=== PATIENT | male | born 1975 | race Caucasian/White ===

== ENCOUNTER 2024-05-15 19:08 | Inpatient (IN) | payer OTHER, SELFPAY ==
[2024-05-15] VITALS (20 sets, daily range): BP systolic 137–218; BP diastolic 92–127; BMI 22.4
[2024-05-15 17:07] LABS: % Eosinophils 0.5 % (0-6); % Immature Granulocytes 0.5 % (0-0.5); % Lymphocytes 20.8 % (20.5-51.1); % Monocytes 6.1 % (1.7-9.3); % Neutrophils 71.1 % (42.2-75.2); Absolute Basophils 0.1 10^3/uL (0-0.2); Absolute Lymphocytes 1.7 10^3/uL (1.2-3.4); Absolute Monocytes 0.5 10^3/uL (0.1-0.6); Absolute Neutrophils 5.7 10^3/uL (1.4-6.5); Hematocrit 46.5 % (39.0-52.0); Hemoglobin 16.2 g/dL (13.0-18.0); Mean Corp Hgb Conc. 34.8 g/dL (33.0-37.0); Mean Corpuscular Hgb 29.3 pg (27.0-31.0); Mean Corpuscular Volume 84.1 fL (80.0-94.0); Mean Platelet Volume 11.1 fL (7.4-10.4); Nucleated Red Blood Cells % 0 % (-); Platelet Count 204 10^3/uL (130-400); Red Blood Cell Count 5.53 10^6/uL (4.70-6.10)
[2024-05-15 17:21] LABS: ALT (SGPT) 40 U/L (0-50); AST (SGOT) 31 U/L (17-59); Albumin 4.1 g/dl (3.5-5.0); Alkaline Phosphatase 332 U/L (38-126); Blood Urea Nitrogen 16 mg/dl (9-20); Calcium 9.4 mg/dl (8.4-10.2); Carbon Dioxide 26 mmol/L (22-30); Chloride 81 mmol/L (98-107); Potassium 4.8 mmol/L (3.5-5.1); Sodium 117 mmol/L (135-145); Total Bilirubin 0.7 mg/dl (0.2-1.3); eGFR > 60.00
[2024-05-15 17:29] LABS: Urine Albumin Negative (Neg - Trace); Urine Bilirubin Negative (Negative); Urine Character Clear (Clear); Urine Color Straw; Urine Glucose 3+ (Negative); Urine Ketone Negative (Negative); Urine Leukocyte Negative (Negative); Urine Nitrite Negative (Negative); Urine Occult Blood Negative (Negative); Urine Urobilinogen Negative (Neg - 1+)
[2024-05-15 17:32] LABS: Glucose 1074 mg/dl (70-99)
[2024-05-15 17:34] LABS: Glucose - Point of Care > 600 mg/dl (70-99)
--- NOTE | 2024-05-15 17:43 | ED.GENMED ---
History of Present Illness
General
Chief Complaint: Change in Mental Status
Time Seen by Provider: 05/15/24 17:30
History of Present Illness
History of Present Illness:
48-year-old male presents the emergency department his for evaluation of numerous symptoms for the past 2 weeks. He has been apparently fatigued and occasionally confused. Has had difficulty walking and is noted to be thirsty with increased
urination. Has lost significant amount of weight over the past 2 months. Apparently had a fall earlier this week while trying to use the bathroom. Currently he denies any headache, chest pain, shortness of breath or abdominal pain. Did vomit
once yesterday but none today.
Past History
Past History
ED Past Medical History: Other (lumbar rad)
Social History
Tobacco: Smoker
Personal: Single
Living: with family
Employment: Not employed
Review of Systems
Review of Systems
Allergies reviewed?: Yes
All Other Systems: ROS reviewed and negative except as documented in HPI and ROS
Phy Exam
Physical Exam
Physical Exam:
GEN: Well appearing, NAD, WDWN
Eyes: PERRLA, EOMs intact, no scleral icterus
HENT: NCAT, oral mucosa dry
Lungs: CTAB, no wheezes, rales, rhonchi, normal chest wall excursion
Cardiac: RRR, no M/R/G, no peripheral edema. Radial pulses 2+ bilat
Abdomen: S, NT, ND, NABS, no masses or hepatosplenomegaly
Neuro: AO x 3
MSK: No gross deformity or ecchymosis. No edema. No digital clubbing
Skin: No rashes, petechiae. Normal color, no pallor or jaundice.
Psych: Calm, cooperative, proper hygiene
Course
Orders/Labs/Results
Orders:
Orders
05/15/24 16:54
Complete Blood Count/With Diff Urgent
Comprehensive Metabolic Panel Urgent
05/15/24 17:17
Osmolality, Random Urine Urgent
Date Specimen was Collected: 05/15/24
Time Specimen was Collected: 16:49
Comment: ADD ON
Urinalysis Reflex To Culture Urgent
Date Specimen was Collected: 05/15/24
Time Specimen was Collected: 16:49
Urine Sodium Urgent
Date Specimen was Collected: 05/15/24
Time Specimen was Collected: 16:49
Comment: ADD ON
05/15/24 17:32
Acetone [B-Hydroxybutyrate] Urgent
Venous Blood Gas Urgent
%Oxygen/Room Air: 98
05/15/24 17:33
Add On- LAB Urgent
Tests Added?: serum osmolality, urine sodium
05/15/24 17:41
Lactated Ringers [Lr] 2,000 ml IV BOLUS
05/15/24 17:45
Reg Insulin 100 Units/100 ml [Novolin R Insulin Infusion] 100 units in 100 ml IV ORDERED RATE
05/15/24 17:55
Glucose Stat
Abnormal Lab Results
05/15/24 05/15/24 05/15/24
16:54 17:17 17:33
MPV 11.1 H fL
(7.4-10.4)
Sodium 117 L* mmol/L
(135-145)
Chloride 81 L mmol/L
(98-107)
Glucose 1074 H* mg/dl
(70-99)
Alkaline Phosphatase 332 H U/L
(38-126)
Urine Sodium 7 L mmol/L
(30-90)
Urine Glucose 3+ A
(Negative)
POC Glucose > 600 H* mg/dl
(70-99)
05/15/24 16:54
Vital Signs
Initial and Last Documented VS:
Initial Vital Signs
Temp Pulse Resp BP Pulse Ox
98.4 F 106 18 137/95 98
05/15/24 16:42 05/15/24 16:42 05/15/24 16:42 05/15/24 16:42 05/15/24 16:42
Last Documented Vital Signs
Temp Pulse Resp BP Pulse Ox
98.4 F 97 13 137/95 98
05/15/24 16:42 05/15/24 17:45 05/15/24 17:45 05/15/24 16:42 05/15/24 16:42
MDM/Problems Addressed
MDM/Problems Addressed:
Patient arrives with altered mental status and weight loss likely on the basis of new onset diabetes with hyperosmolar nonketotic state. No anion gap however marked hyperglycemia. Hyponatremia is compensatory and corrects to 133 when glucose
factored in. He is clinically stable however will require intensive care unit admission due to severe HHS. IV fluid resuscitation and insulin drip initiated in the emergency department. Will be admitted to the hospitalist service
*Critical Care Note
Total Time (30-74mins, 75-104mins- exclusive of procedures): 35 minutes
comment:
Critical care time: 35 minutes
Critical care time was exclusive of: Separately billable procedures, treating other patients, and teaching time
Critical care was necessary to treat or prevent imminent or life-threatening deterioration of the following conditions: HHS
Critical care time spent personally by me on the following activities:
[x] Review of old charts
[x] Obtaining history from patient or surrogate
[x] Ordering and review of the laboratory studies
[x] Ordering and review of radiographic studies
[x] Ordering and performing treatments and interventions
[x] Patient patient's response to treatment
[x] Development of treatment plan with patient or surrogate
ED Attending Note
-
Portions of this chart may have been created with voice recognition software.� Occasional wrong word or��sound alike� substitutions may have occurred due to the inherent limitations of voice recognition software.
Discharge Plan
Departure
Patient Disposition: Admit
Date of Disposition: 05/15/24
Time of Disposition: 18:10
Admit to: ICU
Presentation/result/management discussed w/ accepting MD/DO: Hospitalist
Discharge Problem:
Hyperosmolar hyperglycemic state (HHS)
Prescriptions:
No Action
prednisone 10 MG tablet
10 mg PO .TAPER Qty: 45 0RF
Rx Instructions:
Take [id number], [id number], 64fzj9sldt, 33gwv0vyto, 12wpc8myeg
tramadol 50 MG tablet
50 mg PO Q6HPRN PRN (Reason: pain) Qty: 20 0RF
Interventions
Interventions:
*Risk Screen - Suicide Last Done: 05/15/24 16:42
*General Assessment Last Done: 05/15/24 17:41
*Neglect/Abuse Screening Last Done: 05/15/24 16:42
ED- Fall Risk Assessment Last Done: 05/15/24 17:48
*ED COVID-19 Vaccine History Last Done: 05/15/24 17:46
ED- Neurological Assessment Last Done: 05/15/24 17:47
ED- Cardiac Assessment Last Done: 05/15/24 17:48
ED Swallowing Screen Last Done: 05/15/24 17:47
Discharge Date and Time
Print Language: MALTESE
[2024-05-15 17:51] LABS: Osmolality Urine 547 mOsm/kg (300-900)
[2024-05-15 18:07] LABS: Urine Sodium 7 mmol/L (30-90)
[2024-05-15 18:18] LABS: Venous Blood Gas B.E. 0.7 mmol/L (-4 to +4); Venous Blood Gas HCO3 26.6 mmol/L (22-27); Venous Blood Gas O2 Sat % 90.6 %; Venous Blood Gas pCO2 46 mmHg (35-48); Venous Blood Gas pH 7.37 (7.32-7.43); Venous Blood Gas pO2 57 mmHg (30-50)
[2024-05-15] MEDS: LR 2000 IV (18:20)
--- NOTE | 2024-05-15 18:23 | HPS.HSE ---
Family Physician
-
Family Physician:
Chief Complaint
-
gneralized weakness
History of Present Illness
48-year-old male with no significant past medical history presented to us with worsening fatigue and weak for past 1 month. Patient was noted to have a slow slurred speech. He was nauseous. Denied any abdominal pain. Intermittent vomiting.
Patient was complaining of hard stools .at times he was very confused .patient was also complaining of increased urination and thirsty . Patient denied any headache, dizzy or syncope . Patient denied any fever, chills, runny nose, congestion,
cough .patient denied chest pain or short of breath . Patient denied dysuria materia. Has lost significant amount of weight over the past 2 months. Apparently had a fall earlier this week while trying to use the bathroom.
Upon arrival he was noted to have elevated blood sugar. Patient was initiated on insulin drip. Patient also received lactated Ringer's. Admitting for further management
Medical History
Past Medical History
Past Medical History: Reports None
Past Surgical History: Reports Other
Additional Past Surgical History:
Surgery on his fingers
Social History
Tobacco: Smoker (Half a pack)
Alcohol: Occasional
Drug: Other (Occasional marijuana user)
Personal:
Living: With Family
Family History
Family History: Not pertinent
Allergies / Home Medications
Allergies reflects when Allergies were last updated in [employer].
Home Medications with original date entered in [employer]
Allergy/Medication List:
Allergies
Allergy/AdvReac Type Severity Reaction Status Date / Time
bee venom protein (honey bee) Allergy Anaphylaxis Verified 05/15/24 18:14
Home Medications
ibuprofen 200 mg tablet 400 mg PO Q8HPRN PRN mild pain 05/15/24
Review of Systems
-
Constitutional: Reports Weight Loss and Fatigue
EENT: Reports No Symptoms
Respiratory: Reports No Symptoms
Cardiac: Reports No Symptoms
Abdomen/GI: Reports Nausea
: Reports Other (Increased urination)
Musculoskeletal: Reports No Symptoms
Skin: Reports No Symptoms
Neurological: Reports Weakness
Endocrine: Reports No Symptoms, Polyuria and Polydipsia
Hematologic/Lymphatic: Reports No Symptoms
Psych: Reports No Symptoms
Physical Exam
Vital Signs
Vital Signs
Temp Pulse Resp BP Pulse Ox
98.4 F 97 13 137/95 98
05/15/24 16:42 05/15/24 17:45 05/15/24 17:45 05/15/24 16:42 05/15/24 16:42
Physical Exam
General: Well Developed, Well Nourished and No Apparent Distress
HEENT: NormoCephalic, Moist mucous membranes and Atraumatic
Respiratory: Clear
Cardiac: S1/S2 and Regular Rhythm; No Murmur or Rub
GI: Soft, Non Tender, Non Distended and Normal Bowel Sounds; No Organomegaly
Rectal: Deferred by Provider
Musculoskeletal: No Clubbing, No Cyanosis and No Edema
Skin: No Rash
Neuro: AO x 3 and Nonfocal/grossly intact
Psych: Calm
Laboratory Results
-
05/15/24 16:54
Laboratory Results
Total Bilirubin 0.7 mg/dl (0.2-1.3) 05/15/24 16:54
AST 31 U/L (17-59) 05/15/24 16:54
ALT 40 U/L (0-50) 05/15/24 16:54
Alkaline Phosphatase 332 U/L (38-126) H 05/15/24 16:54
Data Reviewed
-
Lab Data: Labs Reviewed by me
Impression/Plan
-
# New onset diabetes/HHS
-Glucose greater than thousand, no anion gap
-Continue insulin drip
-Continue fluids
-Blood sugar check every 2 hours
# Pseudohyponatremia
-Corrected sodium is 133
-Continue fluids
-BMP in a.m.
# DVT prophylaxis
-heparin sq
# CODE STATUS
-Full code
[2024-05-15] MEDS: NOVOLIN R INSULIN INFUSION 100 IV (18:27)
[2024-05-15 18:36] LABS: B-Hydroxybutyrate 0.22 mmol/L (0.02-0.27)
[2024-05-15 18:41] LABS: Glucose 898 mg/dl (70-99)
--- NOTE | 2024-05-15 18:44 | W.PN.UPDATE ---
Update Note
Progress Note Update
This note serves as an addendum to the H&P by subway car repairer MARYAM Nicky MARTIN
HPI
48M Smoker no significant PMHX seen at ER evaluation of numerous symptoms for the past 2 weeks.
- has been apparently fatigued and occasionally confused.
- has had difficulty walking and is noted to be thirsty with increased urination.
- lost significant amount of weight over the past 2 months.
- had a fall earlier this week while trying to use the bathroom.
ROS
Currently he denies any headache, chest pain, shortness of breath or abdominal pain.
Did vomit once yesterday but none today.
Vital Signs
Temp Pulse Resp BP Pulse Ox
98.4 F 97 13 137/95 98
05/15/24 16:42 05/15/24 17:45 05/15/24 17:45 05/15/24 16:42 05/15/24 16:42
PE
GEN: NAD
HEENT: atraumatic, anicteric , no pallor
Neck : supple
Lungs: symmetric AE. CTA
Cardiac: RRR,. S1 S2. No peripheral edema.
Abdomen: soft , NT, ND, NABS
Neuro: AO x 3
MSK: No edema
Skin: No rashes,
Psych: Calm, cooperative, proper hygiene
Data
Unremarkable CBC
Corrected Na 133 for BG 1074
Non AG MA @ 10
Augie Sr Osm 361- 376
Pending measured Sr Osm
Pending BHB
05/15/24 05/15/24
16:54 18:10
VBG pH 7.37
VBG pCO2 46
VBG pO2 57 H
VBG HCO3 26.6
Potassium 4.8
Chloride 81 L
Carbon Dioxide 26
eGFR > 60.00
Glucose 1074 H*
Alkaline Phosphatase 332 H
NO Prior hospitalist admission:
ASSESSMENT & PLAN
Hyperosmolar hyperglycemic crisis
New onset DM
Dehydration
NGMA @ 10
Elevated Calculated Sr Osm
- ADA 2000 Augie DIET
- LR IVF at ER
- IVF : switch to NS @120
- ISS gtt
- BMP q4hrs
- DM educator
- DM CASING COOKER consult for Insulin mangement
DVT Px: LMWH
Full code
ICU
Total Critical Care Time__55___ minutes. I was immediately available to the patient and staff. I personally examined, reviewed labs, diagnostic images/reports, interpretations, treatment plans, discussed patient care with other providers and
family or caregivers (if patient is unable to make decisions), entered orders as appropriate and documented the medical record.
[2024-05-15 18:45] LABS: Osmolality Serum 306 mOsm/kg (275-300)
[2024-05-15 19:38] LABS: Glucose - Point of Care 597 mg/dl (70-99)
[2024-05-15 20:23] LABS: ALT (SGPT) 35 U/L (0-50); AST (SGOT) 28 U/L (17-59); Albumin 3.6 g/dl (3.5-5.0); Alkaline Phosphatase 263 U/L (38-126); Blood Urea Nitrogen 15 mg/dl (9-20); Calcium 9.3 mg/dl (8.4-10.2); Carbon Dioxide 26 mmol/L (22-30); Chloride 89 mmol/L (98-107); Estimated Creatinine Clearance > 125 ml/min; Glucose 593 mg/dl (70-99); Sodium 124 mmol/L (135-145); Total Bilirubin 0.5 mg/dl (0.2-1.3); Total Protein 6.4 g/dl (6.3-8.2); eGFR > 60.00
[2024-05-15 20:48] LABS: Glucose - Point of Care 480 mg/dl (70-99)
[2024-05-15] MEDS: DILAUDID 0.5 MG IV ×2 (20:56→21:40)
[2024-05-15] MEDS: NSS 1000 IV (20:58)
[2024-05-15] MEDS: HEPARIN 5000 UNITS SC (21:15)
[2024-05-15 21:17] LABS: Glucose 379 mg/dl (70-99)
--- NOTE | 2024-05-15 21:30 | PTCARENOTE ---
Received patient AAOx3, following commands, complaining of severe cramping in b/l lower extremities, dilaudid given. Normal sinus 80s-90s, BP hypertensive, normothermic. 99% on room air, lung sounds diminished throughout. Positive bowel sounds,
abdomen soft, flat. Bedside commode to void, yellow urine, standby assist. Bruising/scabs throughout extremities. PIVs patent, WNL. Insulin and NSS gtt ongoing per protocol. at bedside, call frazier within reach.
[2024-05-15] MEDS: TYLENOL 650 MG PO (21:40)
[2024-05-15 22:14] LABS: Glucose - Point of Care 250 mg/dl (70-99)
[2024-05-15] MEDS: CARDENE 200 IV (22:30)
[2024-05-15] MEDS: D5/0.45%NSS with KCL 20 MEQ 1000 IV (22:36)
[2024-05-15 23:18] LABS: Glucose - Point of Care 206 mg/dl (70-99)
[2024-05-16] VITALS (33 sets, daily range): BP systolic 98–186; BP diastolic 66–115; BMI 22.4
[2024-05-16 00:08] LABS: Glucose - Point of Care 201 mg/dl (70-99)
--- NOTE | 2024-05-16 00:21 | PTCARENOTE ---
Patient given dilaudid x2 and tylenol for leg pain. BP briefly 200s/100s, WALKING DRAGLINE OILER notified, put on cardene gtt. Cardene gtt now off, BP 140s-150s. Fluids changed once BS <250 as per protocol. Otherwise patient assessment unchanged from previous.
[2024-05-16] MEDS: DILAUDID 0.5 MG IV ×3 (00:33→07:20)
[2024-05-16 00:38] LABS: Blood Urea Nitrogen 12 mg/dl (9-20); Calcium 8.7 mg/dl (8.4-10.2); Carbon Dioxide 27 mmol/L (22-30); Chloride 96 mmol/L (98-107); Estimated Creatinine Clearance > 125 ml/min; Glucose 161 mg/dl (70-99); Magnesium 1.8 mg/dl (1.6-2.3); Phosphorus 4.5 mg/dl (2.5-4.5); Potassium 3.4 mmol/L (3.5-5.1); Sodium 132 mmol/L (135-145); eGFR > 60.00
[2024-05-16] MEDS: KCL 20 MEQ PO (00:54)
[2024-05-16 01:11] LABS: Glucose - Point of Care 207 mg/dl (70-99)
[2024-05-16 02:05] LABS: Glucose - Point of Care 144 mg/dl (70-99)
[2024-05-16 03:13] LABS: Glucose - Point of Care 171 mg/dl (70-99)
[2024-05-16 04:13] LABS: Glucose - Point of Care 186 mg/dl (70-99)
[2024-05-16] MEDS: D5/0.45%NSS with KCL 20 MEQ 1000 IV (04:23)
--- NOTE | 2024-05-16 04:58 | PTCARENOTE ---
Patient assessment unchanged from previous, call frazier within reach, labs sent.
[2024-05-16 05:10] LABS: Glucose - Point of Care 142 mg/dl (70-99)
[2024-05-16 05:19] LABS: Blood Urea Nitrogen 9 mg/dl (9-20); Calcium 7.7 mg/dl (8.4-10.2); Carbon Dioxide 28 mmol/L (22-30); Chloride 101 mmol/L (98-107); Estimated Creatinine Clearance > 125 ml/min; Glucose 120 mg/dl (70-99); Potassium 3.3 mmol/L (3.5-5.1); Sodium 134 mmol/L (135-145); eGFR > 60.00
[2024-05-16 06:05] LABS: Glucose - Point of Care 172 mg/dl (70-99)
[2024-05-16] MEDS: KCL 160 MEQ IV (06:06)
[2024-05-16 07:09] LABS: Glucose - Point of Care 176 mg/dl (70-99)
[2024-05-16] MEDS: HEPARIN 5000 UNITS SC (07:42)
--- NOTE | 2024-05-16 07:43 | CON.INTV ---
Consultation
Consultation Request
Date/Time Consultation Requested: 05/16/2024-7 AM
Date/Time Consultation Performed: 05/16/2024-7:30 AM
Requesting Provider: Hospitalist
Performing Provider: Dr. Blanca
Reason for Consultation: Insulin drip/critical care management
Medical History
-
Chief Complaint: Hyperglycemia
History of Present Illness:
48-year-old male smoker who does not frequent medical attention without significant past medical history found to be weak for the last month with slurred speech, intermittent vomiting and confused noted to have severe hyperglycemia, A1c almost 20%
necessitating insulin drip-monotype caster consulted for insulin drip/critical care management 05/16/2024. Patient feels improved since he has been hydrated and on insulin. He had complained of constipation, nausea, intermittent emesis, confusion,
thirst, increased urination, and denied any shortness of breath, chest pain, abdominal pain. He has lost significant amount of weight over the past 2 months.
Past Medical History
Past Medical History: None (Denies any cardiac, pulmonary, renal, gastrointestinal or neurologic problems)
Social History
Tobacco: Smoker (30 years off and on-around [id number] smoking history)
Alcohol: Occasional
Drug: Marijuana (Occasional)
Personal:
Living: With Family
Occupational Exposures: No known asbestos exposure
Environmental Exposures: No known tuberculosis exposure
Family History
Family History: Reviewed & Not Pertinent
Allergies / Home Medications
Allergies
Allergy/AdvReac Type Severity Reaction Status Date / Time
bee venom protein (honey bee) Allergy Anaphylaxis Verified 05/15/24 18:14
Home Medications
�Medication �Instructions �Recorded �Confirmed �Last Taken �Type
ibuprofen 200 mg tablet 400 mg PO Q8HPRN PRN mild pain 05/15/24 05/15/24 05/15/24 History
Review of Systems
-
Unable to Obtain full review of systems at this time due to: Other (Per HPI)
Vitals / Labs / Diagnostic Testing
Vital Signs
Temp Pulse Resp BP Pulse Ox
96.7 F L 75 9 152/110 97
05/16/24 03:23 05/16/24 06:00 05/16/24 05:45 05/16/24 06:00 05/16/24 06:00
Lab Data
05/15/24 16:54
Diagnostic Testing:
Physical Exam
-
Exam:
Well-nourished and well-developed in no apparent distress
HEENT-atraumatic, normocephalic, poor dentition, temporal wasting
Neck-supple, no JVD, no bruit
Heart-regular rate and rhythm-no murmurs, rubs or gallops
Chest-clear to auscultation, no wheezes, crackles
Back-no tenderness
Abdomen-soft, nontender, nondistended, no hepatosplenomegaly
Extremities-no cyanosis, clubbing, edema and good peripheral pulses
Integument-intact, no rashes, lesions or ecchymosis
Neurology-alert and oriented, nonfocal motor and sensory exam
Assessment
-
48-year-old male smoker who does not frequent medical attention without significant past medical history found to be weak for the last month with slurred speech, intermittent vomiting and confused noted to have severe hyperglycemia, A1c almost 20%
necessitating insulin drip-monotype caster consulted for insulin drip/critical care management 05/16/2024.
Severe hyperglycemia-new onset diabetes-HHS
Blood sugar greater than 1000
A1c 19.8%
Pseudohyponatremia
Hypertensive urgency
Hypokalemia
Lower extremity pain-suspected diabetic neuropathy
Conditions present prior to admission:
Medical noncompliance-does not visit physicians for years
Denies cardiac, renal, pulmonary, endocrine, neurologic disease in the past
Plan
Patient will be admitted to medical intensive care unit for close monitoring
Supplemental oxygen as needed
Monitor blood sugar
Anion gap not significantly elevated
Insulin drip
A1c 19.8%
Diabetic nurse practitioner consultation appreciated
Diabetic education
Intravenous fluid resuscitation
Monitor potassium closely and replace appropriately
Significant hypertension
Begin antihypertensive
Nicardipine if needed
DVT prophylaxis-on Lovenox
Early nutrition-diabetic diet
Early mobilization
If able to be weaned off insulin drip then transfer out of ICU-call pulmonary if respiratory issues arise
Critical care statement: A total of 55 minutes of critical care time was provided for this patient today. This includes management of unstable vital signs, insulin drip management, evaluation of the patient at bedside, reviewing the patient's
pertinent medical records including radiographs, microbiology, laboratory evaluations, and discussion with primary team, consultants, charge nurse, and critical care nursing.
Diagnostic data:
Chest x-ray 05/16/2024-NAD
Data Reviewed
-
EKG: Report reviewed by me
Radiology: Image personally visualized and interpreted and Report reviewed by me
Medical Tests (Nuc Med, Echo etc): Report reviewed by me
Labs: Labs reviewed by me
Critical Care Time (in minutes): 55
--- NOTE | 2024-05-16 08:08 | W.PN.HOSP.TC ---
Today's Communication/Plan
-
See PN
Assessment / Plan
Assessment / Plan
48yo M without significant PMHx came with generalized malaise, polydipsia for week, found severe hyperglycemia, managed for new onset DM with HHS
A/P:
#New onset DM with HHS
completed insulin drip and switched to sq insulin basal bolus
DM RN consult for insulin teaching
DM diet, accuchecks, insulin SS
Patient counseled on ophthalm, podiatry and kidney function assessment RAINER upon d/c
#HTN urgency
start Procardia and Lisinopril, patient counseled to check BMP in 2-4 weeks with PCP or in urgent care
#LE pain
pulses present on dorsalis pedis b/l
most likely diabetic microvasculopathy
outpatient vascular
Neurontin HS
#Hypokalemia
repleted
#Psseudohyponatremia 2/2 hyperglycemia
resolved
DVT ppx lovenox
Full code
I have spent at least 58min reviewing chart, test results, communication with consultants and direct patient care
Anticipated Discharge: Within 24 hours
Subjective/Interval History
-
Date of Service: May 16, 2024
Objective Data
-
Labs:
Laboratory Results
05/15/24 05/15/24 05/15/24
19:41 20:52 22:00
PT
INR
APTT
Sodium 124 L
Potassium 4.0 Cancelled
Chloride 89 L
Carbon Dioxide 26
BUN 15
Creatinine 0.7
Glucose 593 H* 379 H
Calcium 9.3
Total Bilirubin 0.5
AST 28
ALT 35
Alkaline Phosphatase 263 H
05/16/24 05/16/24 05/16/24
00:06 04:31 08:00
PT Cancelled
INR Cancelled
APTT Cancelled
Sodium 132 L D 134 L Cancelled
Potassium 3.4 L 3.3 L Cancelled
Chloride 96 L 101 Cancelled
Carbon Dioxide 27 28 Cancelled
BUN 12 9 Cancelled
Creatinine 0.5 L 0.5 L Cancelled
Glucose 161 H 120 H Cancelled
Calcium 8.7 7.7 L Cancelled
Total Bilirubin
AST
ALT
Alkaline Phosphatase
05/16/24 05/16/24 05/16/24
12:00 16:00 20:00
PT
INR
APTT
Sodium Cancelled Cancelled Cancelled
Potassium Cancelled Cancelled Cancelled
Chloride Cancelled Cancelled Cancelled
Carbon Dioxide Cancelled Cancelled Cancelled
BUN Cancelled Cancelled Cancelled
Creatinine Cancelled Cancelled Cancelled
Glucose Cancelled Cancelled Cancelled
Calcium Cancelled Cancelled Cancelled
Total Bilirubin
AST
ALT
Alkaline Phosphatase
Vital Signs:
Vital Signs
Temp Pulse Resp BP Pulse Ox
96.7 F L 75 9 152/110 97
05/16/24 03:23 05/16/24 06:00 05/16/24 05:45 05/16/24 06:00 05/16/24 06:00
I&O
05/15/24 05/16/24 05/17/24
06:59 06:59 06:59
Intake Total 1786 / 1786
Output Total 950 / 950
Balance 836 / 836
Review of Systems
-
History Source: Patient
All other systems: Reviewed and negative
Physical Exam
-
General: No Apparent Distress
GI: Soft, Nontender and Nondistended
Musculoskeletal: No Clubbing, No Cyanosis, No Edema and Other
Neuro: Awake, Alert, Oriented and AO x 3
Psych: Calm
[2024-05-16 08:12] LABS: Glucose - Point of Care 161 mg/dl (70-99)
[2024-05-16 08:20] LABS: Glycohemoglobin (HgbA1c) 19.8 % (4.0-5.6)
--- NOTE | 2024-05-16 08:40 | PN.DE.MGMTRT ---
Insulin Management
- -
05/16/2024 Diabetes Management
Patient admitted with change in mental status, fatigue, increased thirst, urination and weight loss. Found to have glucose of 1074, no GAP. Prior to admission no medications, has not seen a doctor in ~ 15 years. A1C on admission 19.8%, cr .5,
eGFR >60.
Patient is awake alert and oriented able to discuss diabetes care plan.
Currently on insulin infusion @ 2 units per hour for past hours. To transition to subcutaneous Insulin. Dr. Vargas has ordered insulin.
Provided and instructed on prefilled insulin pen with good return demonstration. Instructed on two different insulin he will take, lantus and novolog. Provided printed instructions with pictures for all steps of pen prep and injection technique
and injection sites.
Provided meter and instructions on how to test and times to test. Good return demonstration. Patient states his mother has diabetes and he is familiar with both insulin injections and testing.
Reviewed s/s of hypoglycemia and treatment. Patient verbalized understanding. Provided my number for follow up questions.
Diabetes History
- -
Type of Diabetes: 2 requiring insulin
Pre-Admission Diabetes Regimen
05/15/24 05/15/24 05/16/24
16:54 19:41 00:06
Creatinine 0.8 0.7 0.5 L
05/16/24 05/16/24 05/16/24
04:31 08:00 12:00
Creatinine 0.5 L Cancelled Cancelled
05/16/24 05/16/24
16:00 20:00
Creatinine Cancelled Cancelled
Lab Results
Hemoglobin A1c 19.8 % (4.0-5.6) H 05/15/24 20:52
Insulin Pump Settings
IP Diabetes Regimen
05/15/24 05/15/24 05/15/24
16:54 17:33 18:10
Glucose 1074 H* 898 H*
POC Glucose > 600 H*
05/15/24 05/15/24 05/15/24
19:35 19:41 20:36
Glucose 593 H*
POC Glucose 597 H* 480 H*
05/15/24 05/15/24 05/15/24
20:52 22:03 23:07
Glucose 379 H
POC Glucose 250 H 206 H
05/15/24 05/16/24 05/16/24
23:57 00:06 01:00
Glucose 161 H
POC Glucose 201 H 207 H
05/16/24 05/16/24 05/16/24
01:55 03:02 04:02
Glucose
POC Glucose 144 H 171 H 186 H
05/16/24 05/16/24 05/16/24
04:31 04:59 05:54
Glucose 120 H
POC Glucose 142 H 172 H
05/16/24 05/16/24 05/16/24
06:58 08:00 08:01
Glucose Cancelled
POC Glucose 176 H 161 H
05/16/24 05/16/24 05/16/24
12:00 16:00 20:00
Glucose Cancelled Cancelled Cancelled
POC Glucose
Patient Education
--- NOTE | 2024-05-16 08:59 | PTCARENOTE ---
report received, assessments per work list. patient anxious, c/o severe pain legs. medicated with dilaudid per prn order. cardene resumed. for elevated BP. inulin gtt per orders. hospitalist,insurance actuary in. orders received. truck engine technician at
bedside. teaching initiated. call frazier in reach
[2024-05-16] MEDS: PROCARDIA XL (EXTENDED RELEASE) 60 MG PO (09:04)
[2024-05-16] MEDS: ZESTRIL 5 MG PO (09:04)
[2024-05-16] MEDS: LANTUS 0.1 UNITS SC (09:09)
[2024-05-16 09:19] LABS: Glucose - Point of Care 217 mg/dl (70-99)
[2024-05-16] MEDS: NOVOLOG FLEXPEN 5 UNITS SC ×2 (10:03→17:35)
[2024-05-16] MEDS: NOVOLOG FLEXPEN-MODERATE RESISTANCE 3 UNITS SC (10:04)
[2024-05-16 10:09] LABS: Glucose - Point of Care 248 mg/dl (70-99)
[2024-05-16] MEDS: KCL 40 MEQ PO (11:19)
[2024-05-16] MEDS: D5/0.45%NSS with KCL 20 MEQ IV (11:38)
--- NOTE | 2024-05-16 11:45 | PTCARENOTE ---
patient transitioned off insulin gtt. patient assisted with administering insulin premeal. he required queuing in preparing insulin pen and choosing appropriate dosing. patient assisted out of bed, gait unsteady. assisted with care, tolerated lunch
meal without issues. downgrade to tele level of care. call frazier in reach
--- NOTE | 2024-05-16 12:37 | CM ---
CM following re: discharge planning.
Reviewed pt's chart, met with pt and pt's spouse at bedside.
Pt is a 48 year old male, admitted with primary dx of New onset DM.
Pt reports he lives with spouse 2SH, 1 step to enter, has 2 supportive sons 16 and 24 year of age. Pt described himself as independent in all areas [employer], drives, works.
PCP: pt stated he does not have PCP, information of PCP offices in [facility] provided.
Pharmacy: [facility].
D/C plan: home with anticipated no needs. Spouse to transport at discharge.
CM will follow with discharge plan updates as hospitalization progresses
--- NOTE | 2024-05-16 13:11 | TRANSFER ---
report called to 3 chavo RN. tranfer to 3 chavo with all belongings by PCT
--- NOTE | 2024-05-16 14:06 | PTCARENOTE ---
pt arrived to unit at 1315 via WC from ICU. pt ambulated from WC to bed w/out assist. VSS. connected to tele #[id number] running NSR on the monitor. pt at bedside. pt and oriented to unit.
[2024-05-16 16:40] LABS: Glucose - Point of Care 454 mg/dl (70-99)
[2024-05-16 17:37] LABS: Glucose 446 mg/dl (70-99)
[2024-05-16] MEDS: NOVOLOG FLEXPEN-MODERATE RESISTANCE 11 UNITS SC (17:37)
[2024-05-16] MEDS: LOVENOX 40 MG SC (17:40)
[2024-05-16] MEDS: TYLENOL 650 MG PO (17:55)
[2024-05-16 21:09] LABS: Glucose - Point of Care 396 mg/dl (70-99)
[2024-05-16] MEDS: LANTUS 0.12 UNITS SC (21:22)
[2024-05-16] MEDS: NEURONTIN 100 MG PO (21:22)
[2024-05-16] MEDS: NOVOLOG FLEXPEN 8 UNITS SC ×2 (21:22→23:52)
[2024-05-16 23:34] LABS: Glucose - Point of Care 323 mg/dl (70-99)
[2024-05-17 02:09] LABS: Glucose - Point of Care 216 mg/dl (70-99)
[2024-05-17 03:00] VITALS: BP 102/64
[2024-05-17 07:55] VITALS: BP 131/83
[2024-05-17 08:13] LABS: Glucose - Point of Care 308 mg/dl (70-99)
[2024-05-17] MEDS: ZESTRIL 5 MG PO (08:18)
[2024-05-17] MEDS: PROCARDIA XL (EXTENDED RELEASE) 30 MG PO (08:19)
[2024-05-17] MEDS: NOVOLOG FLEXPEN-MODERATE RESISTANCE 7 UNITS SC (08:19)
[2024-05-17] MEDS: NOVOLOG FLEXPEN 8 UNITS SC ×2 (08:20→12:06)
--- NOTE | 2024-05-17 11:16 | W.PN.HOSP.TC ---
Today's Communication/Plan
-
CT abd/pelvis due to new onset DM and weight loss
D/C if blood glucose in acceptable range <300
Assessment / Plan
Assessment / Plan
48yo M without significant PMHx came with generalized malaise, polydipsia for week, found severe hyperglycemia, managed for new onset DM with HHS. DM RN consult completed insulin teaching, meter provided, monitoring explained to the patient. Blood
glucose was in more acceptable range. Patient aware to monitor it at home and to seek medical attention immediately if blood glucose > 250 on 2 or more occasions. He will schedule visit with family doctor next week - will establish with the same
doctor, who is caring for his . Medically stable for d/c. Recommended for age-appropriate cancer screening
A/P:
#New onset DM with HHS
completed insulin drip and switched to sq insulin basal bolus
DM RN consult completed insulin teaching, meter provided, monitoring explained to the patient, diabetic diet advised
DM diet, accuchecks, insulin SS
Patient counseled on credit control assistant, podiatry and kidney function assessment RAINER upon d/c
#HTN urgency
start Procardia and Lisinopril, patient counseled to check BMP in 2-4 weeks with PCP or in urgent care
#LE pain
pulses present on dorsalis pedis b/l
most likely diabetic microvasculopathy
outpatient vascular
Neurontin HS
#Hypokalemia
repleted
#Pseudohyponatremia 2/2 hyperglycemia
resolved
DVT ppx lovenox
Full code
I have spent at least 38min reviewing chart, test results, communication with consultants and direct patient care
Anticipated Discharge: Within 24 hours
Subjective/Interval History
-
Date of Service: May 17, 2024
Objective Data
-
Vital Signs:
Vital Signs
Temp Pulse Resp BP Pulse Ox
97.5 F 106 16 131/83 97
05/17/24 07:55 05/17/24 08:18 05/17/24 07:55 05/17/24 08:18 05/17/24 07:55
I&O
05/16/24 05/17/24 05/18/24
06:59 06:59 06:59
Intake Total 1786 / 1938 1896 / 1896
Output Total 950 / 950 200 / 200
Balance 836 / 988 1696 / 1696
Review of Systems
-
History Source: Patient
All other systems: Reviewed and negative
Physical Exam
-
General: No Apparent Distress
Musculoskeletal: No Clubbing, No Cyanosis and No Edema
Neuro: Awake, Alert, Oriented and AO x 3
Psych: Calm
[2024-05-17 11:40] VITALS: BP 106/73
[2024-05-17 12:03] LABS: Glucose - Point of Care 424 mg/dl (70-99)
[2024-05-17 12:03] LABS: Glucose - Point of Care 391 mg/dl (70-99)
[2024-05-17] MEDS: NOVOLOG FLEXPEN-MODERATE RESISTANCE 9 UNITS SC (12:07)
[2024-05-17] MEDS: TYLENOL 650 MG PO (13:45)
[2024-05-17 15:30] VITALS: BP 98/66
[2024-05-17 17:05] LABS: Glucose - Point of Care 176 mg/dl (70-99)
[2024-05-17] MEDS: NOVOLOG FLEXPEN 13 UNITS SC (17:36)
[2024-05-17] MEDS: NOVOLOG FLEXPEN-HIGH RESISTANCE 2 UNITS SC (17:36)
[2024-05-17] MEDS: LOVENOX SC (17:38)
[2024-05-17 19:05] VITALS: BP 94/71
[2024-05-17 21:32] LABS: Glucose - Point of Care 349 mg/dl (70-99)
[2024-05-17] MEDS: NEURONTIN 100 MG PO (22:08)
[2024-05-17] MEDS: LANTUS 0.15 UNITS SC (22:08)
[2024-05-17] MEDS: NOVOLOG FLEXPEN 10 UNITS SC (22:09)
[2024-05-17 23:05] VITALS: BP 118/88
[2024-05-18 01:17] LABS: Glucose - Point of Care 232 mg/dl (70-99)
[2024-05-18 03:15] VITALS: BP 127/86
[2024-05-18 07:30] VITALS: BP 130/68
[2024-05-18 08:15] LABS: Glucose - Point of Care 260 mg/dl (70-99)
[2024-05-18] MEDS: ZESTRIL 5 MG PO (09:28)
[2024-05-18] MEDS: NOVOLOG FLEXPEN 13 UNITS SC (10:31)
[2024-05-18] MEDS: NOVOLOG FLEXPEN-HIGH RESISTANCE 7 UNITS SC (10:32)
--- NOTE | 2024-05-18 10:44 | W.PN.HOSP.TC ---
Today's Communication/Plan
-
pending noon glucose, if around or less then 300 - will dc
Assessment / Plan
Assessment / Plan
48yo M without significant PMHx came with generalized malaise, polydipsia for week, found severe hyperglycemia, managed for new onset DM with HHS. DM RN consult completed insulin teaching, meter provided, monitoring explained to the patient. Blood
glucose was in more acceptable range. Patient aware to monitor it at home and to seek medical attention immediately if blood glucose > 250 on 2 or more occasions. He will schedule visit with family doctor next week - will establish with the same
doctor, who is caring for his . Medically stable for d/c. Recommended for age-appropriate cancer screening. Blood sugars better controlled. Eric was due to patient getting high carb meals from kitchen - found with cerial and muffin in AM -
recommended scrambled egg. If no additional blood glucose spikes - can d/c
A/P:
#New onset DM with HHS
completed insulin drip and switched to sq insulin basal bolus
DM RN consult completed insulin teaching, meter provided, monitoring explained to the patient, diabetic diet advised
DM diet, accuchecks, insulin SS
Patient counseled on turret lathe set up operator, podiatry and kidney function assessment RAINER upon d/c
#HTN urgency
start Procardia and Lisinopril, patient counseled to check BMP in 2-4 weeks with PCP or in urgent care
#LE pain
pulses present on dorsalis pedis b/l
most likely diabetic microvasculopathy
outpatient vascular
Neurontin HS
#Hypokalemia
repleted
#Pseudohyponatremia 2/2 hyperglycemia
resolved
DVT ppx lovenox
Full code
I have spent at least 38min reviewing chart, test results, communication with consultants and direct patient care
Anticipated Discharge: Within 24 hours
Subjective/Interval History
-
Date of Service: May 18, 2024
Objective Data
-
Vital Signs:
Vital Signs
Temp Pulse Resp BP Pulse Ox
98.3 F 80 14 130/68 98
05/18/24 07:30 05/18/24 09:28 05/18/24 07:30 05/18/24 09:28 05/18/24 07:30
I&O
05/17/24 05/18/24 05/19/24
06:59 06:59 06:59
Intake Total 1896 / 1896 2159 / 2159
Output Total 200 / 200
Balance 1696 / 1696 2159 / 2159
Review of Systems
-
History Source: Patient
All other systems: Reviewed and negative
Physical Exam
-
General: No Apparent Distress
Neuro: Awake, Alert, Oriented and AO x 3
Psych: Calm
[2024-05-18 11:40] VITALS: BP 122/89
--- NOTE | 2024-05-18 12:28 | CM ---
Patient seen at bedside with . Patient for discharge today and no needs at this time. CM will continue to follow for discharge planning needs.
Plan; home no needs.
[2024-05-18 12:39] LABS: Glucose - Point of Care 158 mg/dl (70-99)
--- NOTE | 2024-05-18 12:45 | W.DCSUMMARY ---
Discharge Summary
Discharge Data
Date of Admission: 05/15/24
Date of Discharge: 05/18/24
-
Pending Results: No
Hospital Course
48yo M without significant PMHx came with generalized malaise, polydipsia for week, found severe hyperglycemia, managed for new onset DM with HHS. DM RN consult completed insulin teaching, meter provided, monitoring explained to the patient. Blood
glucose was in more acceptable range. Patient aware to monitor it at home and to seek medical attention immediately if blood glucose > 250 on 2 or more occasions. He will schedule visit with family doctor next week - will establish with the same
doctor, who is caring for his . Medically stable for d/c. Recommended for age-appropriate cancer screening. Blood sugars better controlled. Eric was due to patient getting high carb meals from kitchen - found with cerial and muffin in AM -
recommended scrambled egg. Much better glucose control acheved. BP well controlled on minimal lisinopril - patient will check BMP with PCP in 2-4 weeks. He verbalized understanding of the instructions Medically stable for d/c home
I have spent at least 38min reviewing chart, test results, communication with consultants and direct patient care
Patient was managed for:
#New onset DM with HHS
#HTN urgency
#LE pain 2/2 neuropathy
#Hypokalemia
#Pseudohyponatremia 2/2 hyperglycemia
Discharge Plan
-
Patient Disposition: Home (Routine Discharge)
Discharge Diagnosis/Procedures: DM
Diet: Diabetic, Carb Controlled
Activity: As tolerated
Driving Restrictions: As prior to admission
Blood Work: BMP in 2-4 weeks
Referrals:
UNKNOWN - PT DOES,NOT KNOW [Family Provider] -
Prescriptions:
New
(DME) Contour Next Test Strips Strip
Qty: 200 1RF
Rx Instructions:
Test before each meal and HS As Directed E11.65
(DME) lancets [Color Lancets] 21 gauge Misc
Qty: 200 1RF
Rx Instructions:
Test before each meal and HS As Directed E11.65
insulin glargine [Lantus Solostar U-100 Insulin] 100 unit/mL (3 mL) insulin pen
15 unit SC HS Qty: 15 3RF
lisinopril 5 mg Tablet
5 mg PO DAILY Qty: 30 0RF
gabapentin 100 mg Capsule
100 mg PO HS Qty: 30 0RF
insulin aspart U-100 100 unit/mL (3 mL) Insulin Pen
13 unit SC AC Qty: 5 3RF
(DME) pen needle, diabetic [Novofine 32] 32 gauge x 1/4' needle
See Rx Instructions .Route Qty: 100 11RF
Rx Instructions:
As directed
alcohol swabs [Alcohol Prep Pads] Pads, Medicated
1 pad topical DIRECTED Qty: 100 11RF
Rx Instructions:
before blood glucose check and insulin injection
Discontinued
ibuprofen 200 mg Tablet
400 mg PO Q8HPRN PRN (Reason: mild pain)
Discharge Orders:
Discharge Patient (As Directed); Ordered 05/18/24
Ordered By: Ramon Vargas
Discharge Date and Time
Print Language: MALTESE
== END 2024-05-18 15:17 | disposition home or self-care (01) | DRG 639 ==
LOC: 3 WEST ACU 19:08
PROVIDERS: Emergency Medicine; Nurse Practitioner Primary Care; Physician Assistant; Registered Nurse; ADMITTING PHYSICIAN Internal Medicine; ATTENDING PHYSICIAN Internal Medicine; CONSULT PHYSICIAN Internal Medicine Critical Care Medicine; EMERGENCY PHYSICIAN Emergency Medicine
DX: E11.65 Type 2 diabetes mellitus with hyperglycemia (principal); E11.40 Type 2 diabetes mellitus with diabetic neuropathy, unspecified; I16.0 Hypertensive urgency; E87.6 Hypokalemia; F17.210 Nicotine dependence, cigarettes, uncomplicated; E86.0 Dehydration; I10 Essential (primary) hypertension
CPT/HCPCS: 71045; 74177; 80048; 80053; 81003; 82010; 82805; 82947; 82962; 83036; 83735; 83930; 83935; 84100; 84300; 85025; 93005; 96365; 96366; 99291; Q9967